=== PATIENT | female | born 1960 | race Caucasian/White ===

== ENCOUNTER 2024-02-25 05:32 | Emergency (ER) | payer BC ==
[~2024-02-25] VITALS: Ht 175.3 cm; Wt 150.0 kg
[2024-02-25] MEDS: methylPREDNISolone SOD SUCC 125 MG/2 ML VL IM ONE (07:20)
[2024-02-25] MEDS: EPINEPHrine HCL 1 MG/1 ML AMP SC ONE (07:20)
[2024-02-25] MEDS ORDERED: HYDR50TA69 PO (07:22)
[2024-02-25] MEDS ORDERED: PRED20TA2 PO (07:22)
[2024-02-25 07:28] VITALS: BP 140/85; PULSE 82; RESP 18; TEMP 98.2; O2SAT 95
== END 2024-02-25 07:31 | disposition home or self-care (01) ==
LOC: ER 05:32
DX: T78.49XA Other allergy, initial encounter (principal); Z79.899 Other long term (current) drug therapy; Z88.0 Allergy status to penicillin; Z88.1 Allergy status to other antibiotic agents; X58.XXXA Exposure to other specified factors, initial encounter
CPT/HCPCS: J0171

== ENCOUNTER → 2024-04-08 | Outpatient (CLI) | payer BC ==
[~2024-04-08] MED LIST: HYDR50TA69 PO; PRED20TA2 PO
== END | disposition home or self-care (01) ==
LOC: LAB 11:51
PROVIDERS: ATTEND Allergy & Immunology
DX: J30.1 Allergic rhinitis due to pollen (principal)
CPT/HCPCS: 82785